=== PATIENT | female | born 1995 | race Caucasian/White ===

== ENCOUNTER 2018-07-25 01:02 | Emergency (ER) | payer MEDICAID ==
[~2018-07-25] VITALS: Ht 170.2 cm; Wt 66.0 kg
[~2018-07-25 01:02] MED LIST: DOCU-131 PO; HYDR-3240 PO; IBUP-1222 PO; NITR100C56 BC
[2018-07-25 01:03] VITALS: BP 109/71
[2018-07-25] MEDS ORDERED: DIPHENHYDRAMINE 25 MG CAPSULE PO ONE (01:30)
[2018-07-25] MEDS ORDERED: DEXAMETHASONE 4 MG TABLET PO ONE (01:30)
[2018-07-25] MEDS ORDERED: DEXAMETHASONE 4 MG TABLET ONE (01:48)
[2018-07-25] MEDS ORDERED: DIPHENHYDRAMINE 25 MG CAPSULE ONE (01:48)
== END 2018-07-25 03:02 | disposition home or self-care (01) ==
LOC: ED 01:37
DX: L29.9 Pruritus, unspecified (principal)
CPT/HCPCS: 99283; Q0163

== ENCOUNTER 2018-10-10 17:43 | Emergency (ER) | payer MEDICAID ==
[~2018-10-10] VITALS: Ht 170.2 cm; Wt 62.1 kg
[2018-10-10 18:23] LABS: BASOPHILS # (AUTO) 0.04 x10^3/uL (0-0.1); BASOPHILS % (AUTO) 0 % (0-1); EOSINOPHILS # (AUTO) 0.24 x10^3/uL (0-0.4); EOSINOPHILS % (AUTO) 2 % (1-7); LYMPHOCYTES # (AUTO) 1.83 x10^3/uL (1-3.4); LYMPHOCYTES % (AUTO) 13 % (22-44); MD NO; MEAN CORPUSCULAR HEMOGLOBIN 27.2 pg (27.0-34.8); MEAN CORPUSCULAR VOLUME 82.6 fL (80-100); MEAN PLATELET VOLUME 8.1 fL (7.4-10.4); MONOCYTES % (AUTO) 5 % (2-9); NEUTROPHILS # (AUTO) 11.41 x10^3/uL (1.8-6.8); NEUTROPHILS % (AUTO) 80 % (42-75); PLATELET COUNT 449 x10^3/uL (130-400); RED BLOOD COUNT 5.51 x10^6/uL (3.82-5.3); RED CELL DISTRIBUTION WIDTH 13.7 % (9.6-15.2)
[2018-10-10 18:32] LABS: ALBUMIN 4.3 g/dL (3.4-5.0); ANION GAP 8 mmol/L (5-15); CHLORIDE 103 mmol/L (98-107)
[2018-10-10 19:57] LABS: HCG UR SG 1.032 (1.003-1.030); MICROSCOPIC AUTO
[2018-10-10 19:59] LABS: CULTURE INDICATED? YES
[2018-10-10] MEDS ORDERED: OXYcodone/APAP 5/325MG TABLET ONE (20:27)
[2018-10-10] MEDS ORDERED: HYDROcodone/APAP 5/325 TABLET PO ONE (20:30)
[2018-10-10] MEDS ORDERED: HYDROcodone/APAP 5/325 TABLET ONE (20:31)
[2018-10-10] MEDS ORDERED: SODIUM CHLORIDE FLUSH 10ML SYR IVF ONE (21:00)
[2018-10-10] MEDS ORDERED: OMNIPAQUE 350 MG/ML, 100ML BOTTLE ONE (21:30)
[2018-10-10 22:51] VITALS: BP 114/70
== END 2018-10-10 23:12 | disposition home or self-care (01) ==
LOC: ED 19:31
DX: K64.4 Residual hemorrhoidal skin tags (principal); N30.01 Acute cystitis with hematuria
CPT/HCPCS: 36415; 74177; 80048; 81001; 81025; 82040; 85025; 87086; 87147; 99284; Q9967

== ENCOUNTER 2018-11-10 13:36 | Emergency (ER) | payer MEDICAID ==
[~2018-11-10] VITALS: Ht 170.2 cm; Wt 62.6 kg
[2018-11-10 13:40] VITALS: BP 130/85
--- NOTE | 2018-11-10 13:47 | NUR ---
PT A&OX4, RESP EVEN & UNLABORED, SPEECH CLEAR, SKIN WNL, VISIBLY TREMBLING. PT'S BOYFRIEND IN ROOM - VERBAL PERMISSION FROM PT FOR BOYFRIEND TO REMAIN IN ROOM. PT STATES SHE WAS GETTING MODELING PHOTOGRAPHS TAKEN, "I HAD A SHOT (VODKA)" "I WAS POSING FOR A FEW PICTURES AND AFTER THAT I DON'T REMEMBER." "MY SISTER PICKED ME UP" TO TAKE PT HOME. WHEN ASKED HOW SISTER KNEW TO PICK PT UP, PT STATED "I FREAKED OUT AND HE (THE FORMING FIXER) TOOK MY PHONE" STATES "I WOKE UP IN DIFFERENT PAIR OF UNDERWEAR" "I'M SHAVED IN AN AREA I DON'T SHAVE" "MY BRA IS MISSING". CURRENTLY HAS A CONCEPCION, OTHERWISE DENIES PAIN. PT WOULD LIKE TO MAKE A POLICE REPORT. PT CURRENTLY WEARING UNDERWEAR SHE LEFT FORMING FIXER'S IN.
[2018-11-10] MEDS ORDERED: NEXPLANON (13:56)
[2018-11-10] MEDS ORDERED: PAIN MED (13:56)
--- NOTE | 2018-11-10 14:05 | NUR ---
[facility] NOTIFIED OF PT'S REQUEST TO MAKE A REPORT.
--- NOTE | 2018-11-10 14:10 | NUR ---
DR MANE BS FOR EXAM, THIS RN IN ROOM. PT STATES SHE TOOK A VALIUM TWO DAYS AGO.
--- NOTE | 2018-11-10 14:15 | NUR ---
DISCUSSED SANE EXAM WITH PT AND BOYFRIEND; QUESTIONS ANSWERED. BOYFRIEND STATES "WE HAD SEX LAST NIGHT." BUSINESS CARD OF [employer] W[employer] ROPE PROVIDED BY BOYFRIENDJAS; COPY MADE FOR [facility].
--- NOTE | 2018-11-10 17:41 | NUR ---
Patient/Caregiver given discharge instructions and they have confirmed that they understand the instructions. Patient ambulatory with steady gait. PT TO DC WITH BOYFRIEND [facility] HAS LEFT. PT INSTRUCTED ON THE IMPORTNACE OF GOING TO SANE NURSE APPOINTMENT AT 7PM AND HAS VERBALZIED UNDERSTANDING. BOYFRIEND OFFERED TO DRIVE HER THERE. PT IS HAPPY WITH DC DISPOSITION AND AT THIS TIME HAS NO OTHER NEEDS AND IS AWARE WE ARE A RESOURCE TO HER.
== END 2018-11-10 17:44 | disposition home or self-care (01) ==
LOC: ED 14:44
DX: T76.21XA Adult sexual abuse, suspected, initial encounter (principal)
CPT/HCPCS: 99283

== ENCOUNTER 2019-01-09 22:38 | Emergency (ER) | payer MEDICAID ==
[~2019-01-09] VITALS: Ht 170.2 cm; Wt 65.3 kg
[~2019-01-09 22:38] MED LIST changes: +NEXPLANON; +PAIN MED
[2019-01-09 23:31] LABS: HCG UR SG 1.022 (1.003-1.030); MICROSCOPIC NOT IND
[2019-01-09 23:33] LABS: CULTURE INDICATED? NO
--- NOTE | 2019-01-10 01:12 | NUR ---
ASSUMED ARE OF PATIENT. PATIENT REPORTS LOW BACK PAIN THAT SHOOTS UP HER RIGHT SIDE OF HER BACK. PT HAS A HISTORY OF BACK PAIN. NO ACUTE DISTRESS NOTED. PT IS EATING A BANNANA. BOYFRIEND AT BEDSIDE. NO ACUTE DISTRESS NOTED. WILL CONTINUE TO MONITOR.
--- NOTE | 2019-01-10 01:42 | NUR ---
pt resting in room. no acute distress noted. will continue to monitor.
[2019-01-10] MEDS ORDERED: HYDROcodone/APAP 5/325 TABLET ONE (02:27)
[2019-01-10] MEDS ORDERED: HYDROcodone/APAP 5/325 TABLET PO ONE (02:30)
[2019-01-10 02:49] VITALS: BP 115/65
== END 2019-01-10 02:51 | disposition home or self-care (01) ==
LOC: ED 01-10 01:36
DX: M54.5 Low back pain (principal); G43.909 Migraine, unspecified, not intractable, without status migrainosus
CPT/HCPCS: 81003; 81025; 99283